=== PATIENT | female | born 1990 | race Two or more races ===

== ENCOUNTER 2018-11-20 03:41 | Emergency (ER) | payer MEDICAID ==
[~2018-11-20] VITALS: Ht 162.6 cm; Wt 54.4 kg
[2018-11-20] MEDS ORDERED: XANAX0.25 MG ORAL (03:45)
[2018-11-20] MEDS ORDERED: KLONOPIN0.5 MG ORAL (03:45)
[2018-11-20] MEDS ORDERED: ADDERALL 30 MG30 MG ORAL (03:53)
[2018-11-20] MEDS ORDERED: SYNTHROID150 MCG ORAL (03:53)
[2018-11-20 04:00] VITALS: BP 95/56
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
[2018-11-20 04:22] LABS: APPEARANCE,URINE CLEAR; BILIRUBIN, URINE NEGATIVE (NEGATIVE); COLOR,URINE PALE YELLOW; GLUCOSE, URINE (UA) NEGATIVE (NEGATIVE); KETONES,URINE NEGATIVE (NEGATIVE); LEUKOCYTE ESTERASE ,URINE 2+ (NEGATIVE); NITRITE,URINE NEGATIVE (NEGATIVE); PH,URINE 5 (4.5-8.0); PROTEIN,URINE NEGATIVE (NEGATIVE); UROBILINOGEN,URINE NORMAL MG/DL (0.0-1.0)
[2018-11-20 04:27] LABS: BASOPHILS % (AUTO) 1.3 % (0.0-2.0); EOSINOPHILS % (AUTO) 1.8 % (0.0-3.0); HEMATOCRIT 35.9 % (37.0-47.0); HEMOGLOBIN 10.8 G/DL (12.0-16.0); LYMPHOCYTES % (AUTO) 50.4 % (20.0-45.0); MEAN CORPUSCULAR VOLUME 75 FL (80-99); MONOCYTES % (AUTO) 6.3 % (1.0-10.0); NEUTROPHILS % (AUTO) 40.2 % (45.0-75.0); PLATELET COUNT 437 K/UL (150-450); RED BLOOD COUNT 4.82 M/UL (4.20-5.40)
[2018-11-20 05:20] VITALS: BP 109/67
[2018-11-20 05:21] LABS: ALANINE AMINOTRANSFERASE 28 U/L (12-78); ALBUMIN 3.5 G/DL (3.4-5.0); ALBUMIN/GLOBULIN RATIO 0.9 (1.0-2.7); ALKALINE PHOSPHATASE 49 U/L (46-116); ANION GAP 10 mmol/L (5-15); ASPARTATE AMINO TRANSFERASE 36 U/L (15-37); BILIRUBIN,TOTAL 0.1 MG/DL (0.2-1.0); BLOOD UREA NITROGEN 8 mg/dL (7-18); CALCIUM 8.7 MG/DL (8.5-10.1); CARBON DIOXIDE 28 MMOL/L (21-32); CHLORIDE 109 MMOL/L (98-107); CREATININE 0.6 MG/DL (0.55-1.30); POTASSIUM 3.3 MMOL/L (3.5-5.1); SODIUM 147 MMOL/L (136-145)
[2018-11-20 07:38] VITALS: BP 95/61
[2018-11-20 09:30] VITALS: BP 102/60
[2018-11-20 12:10] VITALS: BP 94/52
[2018-11-20 13:06] VITALS: BP 92/54
== END 2018-11-20 13:06 ==
LOC: EDBD 03:41 → EMR 03:52
DX: S20.211A Contusion of right front wall of thorax, initial encounter (principal); T14.8XXA Other injury of unspecified body region, initial encounter; Y04.2XXA Assault by strike against or bumped into by another person, initial encounter; Z88.2 Allergy status to sulfonamides; F14.90 Cocaine use, unspecified, uncomplicated; F13.90 Sedative, hypnotic, or anxiolytic use, unspecified, uncomplicated
CPT/HCPCS: 36415; 80053; 80307; 80329; 81003; 81025; 85025; 93005; 96360; 96361; 99284